=== PATIENT | female | born 1955 | race Caucasian/White ===

== ENCOUNTER → 2018-08-01 17:35 | Outpatient (CLI) | payer OTHER, MEDICAID, SELFPAY ==
--- NOTE | 2018-08-01 17:39 | DI.RAD.S_ITS ---
PROCEDURE: XR FINGER LT MIN 2V INDICATIONS: 5 th digit pain TECHNIQUE: AP hand, 2 views of the left fifth finger(s) acquired. COMPARISON: None. FINDINGS: Bones: Tiny bony fragment at the DIP joint may potentially represent a small avulsion fragment. No other fractures or dislocations. Soft tissues: No suspicious soft tissue calcifications. IMPRESSION: Question tiny avulsion off the distal phalanx of the small finger at the the DIP joint. Dictated by: Jaun Cat M.D. on 08/02/2018 at 9:19 Approved by: Jaun Cat M.D. on 08/02/2018 at 9:21
--- NOTE | 2018-08-01 17:39 | DI.RAD.S_ITS ---
PROCEDURE: XR CHEST 2V INDICATIONS: chest pain, shortness of breath TECHNIQUE: 2 views of the chest were acquired. COMPARISON: [facility], CT, THORAX WITH CONTRAST, 06/10/2015, 13:56. [facility], CR, CHEST 2 VIEW, 06/30/2015, 18:23. FINDINGS: Surgical changes and devices: None. Lungs and pleura: There is emphysematous change. There is chronic biapical pleural parenchymal thickening and biapical volume loss with cephalad retraction of the pulmonary john. Prominence of the vascular john and a left superior hilar bulbous appearance appears stable compared to the previous chest CT. These findings may represent chronic granulomatous disease. No focal pulmonary infiltrates. No pleural fluid. Mediastinum: Mediastinal contours are normal. Heart size is normal. Bones and chest wall: No suspicious bony abnormalities. Soft tissues appear unremarkable. IMPRESSION: 1. COPD. 2. Biapical pleural-parenchymal scarring and cephalad retraction of the pulmonary john may be secondary to chronic granulomatous disease. 3. No acute pulmonary process. Comment: If this patient has significant smoking history, yearly screening chest CT may be helpful. Dictated by: Jaun Cat M.D. on 08/02/2018 at 9:14 Approved by: Jaun Cat M.D. on 08/02/2018 at 9:19
[2018-08-01 19:22] LABS: Hematocrit 43.6 % (36-46); Hemoglobin 14.7 g/dL (12.0-16.0); Mean Corpuscular HGB Conc 33.7 % (30-36); Mean Corpuscular Hemoglobin 31.3 PG (26-34); Platelet Count 246 X10^3/uL (150-400); White Blood Cell Count 6.6 X10^3/uL (4.5-11.0)
[2018-08-01 19:37] LABS: Alanine Aminotransferase 26 IU/L (9-52); Albumin 4.7 g/dL (3.5-5.0); Albumin Globulin Ratio 1.6 (1.0-2.8); Alkaline Phosphatase 68 U/L (38-126); Aspartate Aminotransferase 27 IU/L (14-36); Bilirubin Total 0.6 mg/dL (0.2-1.3); Blood Urea Nitrogen 18 mg/dL (7-17); Calcium 9.7 mg/dL (8.4-10.2); Carbon Dioxide 28 mmol/L (22-32); Chloride 103 mmol/L (98-107); Cholesterol 177 mg/dL (140-199); Estimated Glomerular Filt Rate > 60.0 mL/min (>60); Glucose 96 mg/dL (80-110); HDL Cholesterol 90 mg/dL (40-60); HEMOLYSIS < 15 (0-50); LDL Cholesterol Calculated 77 mg/dL (<100); Sodium 140 mmol/L (137-145); Total Protein 7.7 g/dL (6.3-8.2); Triglycerides 48 mg/dL (35-150)
[2018-08-01 19:57] LABS: TSH w/ Reflex to FT4 1.48 uIU/mL (0.47-4.68)
== END ==
PROVIDERS: PCP Nurse Practitioner Family; Visit Provider Nurse Practitioner Family
DX: R07.89 Other chest pain (principal); J44.9 Chronic obstructive pulmonary disease, unspecified; M65.30 Trigger finger, unspecified finger; Z00.00 Encounter for general adult medical examination without abnormal findings
CPT/HCPCS: 36415; 71046; 73140; 80053; 80061; 84443; 85027

== ENCOUNTER 2018-08-11 15:11 | Emergency (ER) | payer OTHER, MEDICAID, SELFPAY ==
[2018-08-11 15:14] VITALS: BP 134/80; PULSE 91; RESP 16; TEMP 36.2; O2SAT 98
--- NOTE | 2018-08-11 15:26 | DI.CT.S_ITS ---
PROCEDURE: CT HEAD/BRAIN WO CON INDICATIONS: fall TECHNIQUE: Noncontrast 4.5 mm thick angled axial sections acquired from the foramen magnum to the vertex, with coronal and sagittal reformats. For radiation dose reduction, the following was used: automated exposure control, adjustment of mA and/or kV according to patient size. COMPARISON: None. FINDINGS: Image quality: Excellent. CSF spaces: Basal cisterns are patent. No extra-axial fluid collections. Ventricles are normal in size and shape. Brain: No midline shift. No intracranial masses or hemorrhage. Barnett-white matter interface is normal. Skull and face: Calvarium and visualized facial bones are intact, without suspicious lesions. There is a prominent left occipital arachnoid granulation. Sinuses: Visualized sinuses and mastoids are clear. IMPRESSION: Negative head CT with no evidence of acute stroke, hemorrhage, or mass. No evidence of significant intracranial sequelae of acute trauma. Dictated by: Jaun Cat M.D. on 08/11/2018 at 15:53 Approved by: Jaun Cat M.D. on 08/11/2018 at 15:55
--- NOTE | 2018-08-11 15:27 | DI.CT.S_ITS ---
PROCEDURE: CT FACIAL BONES WO CON INDICATIONS: fall TECHNIQUE: Noncontrast 2.5 mm thick axial images acquired from the mandible through the frontal sinuses, with coronal and sagittal reformatting. For radiation dose reduction, the following was used: automated exposure control, adjustment of mA and/or kV according to patient size. COMPARISON: [facility], CT, CT HEAD/BRAIN WO CON, 08/11/2018, 15:29. [facility], CT, CT CERVICAL SPINE WO CON, 08/11/2018, 15:29. FINDINGS: Image quality: Excellent. Bones and teeth: Orbital real are intact. Sinus real show no fracture or deformity. Nasal bones and septum are intact. Visualized portions of the mandible demonstrate no fractures or subluxation. Zygomatic arches are intact. Pterygoid plates are intact. Visualized portions of the skull base and auditory canals are intact. Sinuses: Mucous retention cyst versus polyp is present in the right maxillary sinus. Mild ethmoid, left maxillary and left frontal sinus mucosal thickening is present. There is leftward nasal septal deviation. Mastoid air cells are aerated. Soft tissues: No edema, masses, or fluid collections. No enlarged lymph nodes. No soft tissue lacerations or debris. Vascular: Visualized vascular structures appear normal in the absence of contrast. Bony vascular foramina and canals are intact. IMPRESSION: 1. No visualized fractures. Dictated by: Brandy Martinez M.D. on 08/11/2018 at 15:06 Approved by: Brandy Martinez M.D. on 08/11/2018 at 15:08
--- NOTE | 2018-08-11 15:29 | DI.CT.S_ITS ---
PROCEDURE: CT CERVICAL SPINE WO CON INDICATIONS: fall TECHNIQUE: Noncontrast 3 mm thick sections acquired from the skull base to the T4 level. Sagittal and coronal reformats were then constructed. For radiation dose reduction, the following was used: automated exposure control, adjustment of mA and/or kV according to patient size. COMPARISON: None. FINDINGS: Image quality: Excellent. Bones: No fractures or dislocations. Visualized superior ribs are intact. No cervical spondylitic change. Soft tissues: Prevertebral soft tissues are normal in thickness. No paravertebral hematomas. No apical pneumothoraces. Severe biapical centrilobular emphysema. IMPRESSION: No evidence of acute cervical fracture or dislocation. Mild cervical spondylosis. Severe centrilobular emphysema. Dictated by: Jaun Cat M.D. on 08/11/2018 at 16:01 Approved by: Jaun Cat M.D. on 08/11/2018 at 16:03
--- NOTE | 2018-08-11 17:24 | ED.HEATRA ---
HPI - Head Injury <KEON Ahmadi - Last Filed: 08/11/18 22:45> General Chief complaint: Head Injury Stated complaint: fell and is having 'head problems' Time Seen by Provider: 08/11/18 17:04 Source: patient Mode of arrival: ambulatory Limitations: no limitations History of Present Illness HPI Narrative: 63-year-old female with history of asthma and is a nonsmoker here for complaint of having injury to her head with some right-sided neck pain along with left-sided knee pain after ground level fall yesterday. She states that she was caring her dog down a step when she lost her standing fell forward hitting her right side of her forehead. She also hit the anterior portion of her left knee when she fell. She denies any loss of consciousness. No nausea vomiting. She is ambulatory into the emergency room. She states that she has felt a little lightheaded today. She she is not on any blood thinners. She denies any other injuries or concerns at this timeframe. No loss of bladder or bowel control. Related Data Home Medications Medication Instructions Recorded Confirmed Vitamin D PO 08/01/18 08/01/18 Zinc PO 08/01/18 08/01/18 magnesium PO 08/01/18 08/01/18 Previous Rx's Medication Instructions Recorded albuterol sulfate HFA 90 2 puff INHALATION Q6H PRN #18 gram 08/01/18 mcg/actuation aerosol inhaler tiotropium bromide 18 mcg capsule 1 cap INHALATION DAILY #30 08/07/18 with inhalation device inhalation cyclobenzaprine 10 mg PO TID PRN #15 tab 08/11/18 Allergies Allergy/AdvReac Type Severity Reaction Status Date / Time Penicillins Allergy Severe Face Verified 08/01/18 15:17 swelling Sulfa (Sulfonamide Allergy Unknown Unverified 08/01/18 15:17 Antibiotics) [SULFA (SULFONAMIDE ANTIBIOTICS)] acetaminophen [From Vicodin] AdvReac Severe Psychosis Verified 08/01/18 15:17 hydrocodone [From Vicodin] AdvReac Severe Psychosis Verified 08/01/18 15:17 meperidine [From DEMEROL] AdvReac Mild Unverified 08/01/18 15:17 Review of Systems <KEON Ahmadi - Last Filed: 08/11/18 22:45> Constitutional Denies chills, Denies fever(s), Denies lethargy and Denies weakness Eyes Denies change in vision, Denies eye discharge, Denies irritation and Denies loss of vision ENT Ears, Nose, Mouth, and Throat: Denies change in voice, Denies neck pain and Denies sore throat Cardiovascular Denies chest pain, Denies irregular heart rhythm, Denies lightheadedness, Denies palpitations, Denies dyspnea, Denies dyspnea on exertion and Denies orthopnea Respiratory Denies cough, Denies dyspnea, Denies dyspnea on exertion and Denies wheezing Gastrointestinal Gastrointestinal: Denies abdominal pain, Denies change in bowel habits, Denies diarrhea, Denies nausea and Denies vomiting Genitourinary Denies hematuria, Denies flank pain, Denies urinary incontinence and Denies urinary urgency Musculoskeletal Denies neck pain Comments: Pain swelling to left knee. Tenderness to the lateral aspect of the neck. Integumentary/Breasts Denies pruritus, Denies erythema, Denies rash and Denies wounds Neurologic Denies loss of vision and Denies weakness Comments: Head injury Endocrine Denies palpitations Allergic/Immunologic Denies wheezing PFSH <KEON Ahmadi - Last Filed: 08/11/18 22:45> Social History Smoking Status: Current every day smoker Social History Smoking Status: Current every day smoker Exam <KEON Ahmadi - Last Filed: 08/11/18 22:45> Initial Vital Signs Initial Vital Signs: Vital Signs Temperature 97.2 F L 08/11/18 15:14 Pulse Rate 91 H 08/11/18 15:14 Respiratory Rate 16 08/11/18 15:14 Blood Pressure 134/80 08/11/18 15:14 Pulse Oximetry 98 08/11/18 15:14 Const General: cooperative and well developed Nutritional Appearance: well nourished Orientation: alert, awake, oriented x3 and not confused [facility] Mouth: oral mucosae normal and moist mucous membranes Eyes General: appearance normal, both eyes and all related structures Conjunctivae: conjunctivae normal Sclera: sclerae normal Pupils: PERRL EOM: EOM intact bilaterally Neck Neck: normal visual inspection, trachea midline, No lymphadenopathy, No midline deformity and No JVD Lymphatic: No lymphedema Other: No signs of trauma. No midline tenderness. Tenderness on palpation to the right paraspinals of the neck. Distal CMS is intact. Resp Effort & Inspection: normal respiratory effort, able to speak in complete sentences, no respiratory distress and no use of accessory muscles Auscultation: clear to auscultation bilaterally, no rales, no rhonchi and no wheezes Cardio Rate: regular rate Rhythm: regular rhythm Heart Sounds: no click, no gallops, no murmurs and no rubs Pulses: normal peripheral pulses Skin General: no rashes or lesions noted, No jaundice and No petechiae Neuro General: alert, oriented x3, gait normal and no focal motor deficits Speech: speech normal Extrem General: full ROM, no clubbing, cyanosis or edema, no pedal edema and no calf tenderness Other: Left knee with some slight swelling and bruising to the anterior portion of the knee. Negative anterior and posterior drawer sign. Distal CMS is intact. <Arben Fonseca DO - Last Filed: 08/12/18 01:42> Initial Vital Signs Initial Vital Signs: Vital Signs Temperature 97.2 F L 08/11/18 15:14 Pulse Rate 91 H 08/11/18 15:14 Respiratory Rate 16 08/11/18 15:14 Blood Pressure 134/80 08/11/18 15:14 Pulse Oximetry 98 08/11/18 15:14 Course <KEON Ahmadi - Last Filed: 08/11/18 22:45> Orders Ordered: ED Orders 08/11/18 17:57 XR knee LT 3V Stat Discontinued Medications Cyclobenzaprine HCl (Flexeril) 10 mg PO NOW ONE Stop: 08/11/18 18:20 Last Admin: 08/11/18 18:24 Dose: 10 mg Ibuprofen (Advil) 400 mg PO NOW ONE Stop: 08/11/18 18:20 Last Admin: 08/11/18 18:23 Dose: 400 mg Vital Signs - 8 hr 08/11/18 19:30 Pulse Rate 66 Respiratory Rate 20 Blood Pressure 130/79 Pulse Oximetry 98 <Arben Fonseca DO - Last Filed: 08/12/18 01:42> Orders Ordered: ED Orders 08/11/18 17:57 XR knee LT 3V Stat Discontinued Medications Cyclobenzaprine HCl (Flexeril) 10 mg PO NOW ONE Stop: 08/11/18 18:20 Last Admin: 08/11/18 18:24 Dose: 10 mg Ibuprofen (Advil) 400 mg PO NOW ONE Stop: 08/11/18 18:20 Last Admin: 08/11/18 18:23 Dose: 400 mg Vital Signs - 8 hr 08/11/18 19:30 Pulse Rate 66 Respiratory Rate 20 Blood Pressure 130/79 Pulse Oximetry 98 MDM - Head Injury <KEON Ahmadi - Last Filed: 08/11/18 22:45> Imaging Data Left knee : Radiologist's impression: [address] [place] [id number] XRay Report Signed Patient: Elvis Whitehead LMR#: [id number] : 7Acct:[id number] Age/Sex: 63 / FDate of Service: 08/11/18 Loc: ED Accession Number: [id number] Procedure: XR knee LT 3V Ordering Provider: Ramos Cherry PROCEDURE: XR KNEE LT 3V INDICATIONS: Ground level fall bruising and pain to left knee TECHNIQUE: 3 views of the knee were acquired. COMPARISON: None. FINDINGS: Bones: No fractures or dislocations. No suspicious bony lesions. Soft tissues: No joint effusion. No suspicious soft tissue calcifications. IMPRESSION: Intact left knee. Dictated by: Vandana Hoffmann M.D. on 08/11/2018 at 18:48 Approved by: Vandana Hoffmann M.D. on 08/11/2018 at 18:48 CT scan - head: Radiologist's impression: [address] [address] [address] Scan Report Signed Patient: Elvis Whitehead LMR#: [id number] : 7Acct:[id number] Age/Sex: 63 / FDate of Service: 08/11/18 Loc: ED Accession Number: [id number] Procedure: CT head/brain wo con Ordering Provider: Porsche Ramos D.O. PROCEDURE: CT HEAD/BRAIN WO CON INDICATIONS: fall TECHNIQUE: Noncontrast 4.5 mm thick angled axial sections acquired from the foramen magnum to the vertex, with coronal and sagittal reformats. For radiation dose reduction, the following was used: automated exposure control, adjustment of mA and/or kV according to patient size. COMPARISON: None. FINDINGS: Image quality: Excellent. CSF spaces: Basal cisterns are patent. No extra-axial fluid collections. Ventricles are normal in size and shape. Brain: No midline shift. No intracranial masses or hemorrhage. Barnett-white matter interface is normal. Skull and face: Calvarium and visualized facial bones are intact, without suspicious lesions. There is a prominent left occipital arachnoid granulation. Sinuses: Visualized sinuses and mastoids are clear. IMPRESSION: Negative head CT with no evidence of acute stroke, hemorrhage, or mass. No evidence of significant intracranial sequelae of acute trauma. Dictated by: Jaun Cat M.D. on 08/11/2018 at 15:53 Approved by: Jaun Cat M.D. on 08/11/2018 at 15:[address] : Radiologist's impression: [address] [address] [address] Scan Report Signed Patient: Elvis Whitehead LMR#: [id number] : 7Acct:[id number] Age/Sex: 63 / FDate of Service: 08/11/18 Loc: ED Accession Number: [id number] Procedure: CT facial bones wo con Ordering Provider: Porsche Ramos D.O. PROCEDURE: CT FACIAL BONES WO CON INDICATIONS: fall TECHNIQUE: Noncontrast 2.5 mm thick axial images acquired from the mandible through the frontal sinuses, with coronal and sagittal reformatting. For radiation dose reduction, the following was used: automated exposure control, adjustment of mA and/or kV according to patient size. COMPARISON: [facility], CT, CT HEAD/BRAIN WO CON, 08/11/2018, 15:29. [facility], CT, CT CERVICAL SPINE WO CON, 08/11/2018, 15:29. FINDINGS: Image quality: Excellent. Bones and teeth: Orbital real are intact. Sinus real show no fracture or deformity. Nasal bones and septum are intact. Visualized portions of the mandible demonstrate no fractures or subluxation. Zygomatic arches are intact. Pterygoid plates are intact. Visualized portions of the skull base and auditory canals are intact. Sinuses: Mucous retention cyst versus polyp is present in the right maxillary sinus. Mild ethmoid, left maxillary and left frontal sinus mucosal thickening is present. There is leftward nasal septal deviation. Mastoid air cells are aerated. Soft tissues: No edema, masses, or fluid collections. No enlarged lymph nodes. No soft tissue lacerations or debris. Vascular: Visualized vascular structures appear normal in the absence of contrast. Bony vascular foramina and canals are intact. IMPRESSION: 1. No visualized fractures. Dictated by: Brandy Martinez M.D. on 08/11/2018 at 15:06 Approved by: Brandy Martinez M.D. on 08/11/2018 at 15:[address] : Radiologist's impression: [place] [address] CT Scan Report Signed Patient: Elvis Whitehead LMR#: [id number] : 7Acct:[id number] Age/Sex: 63 / FDate of Service: 08/11/18 Loc: ED Accession Number: [id number] Procedure: CT cervical spine wo con Ordering Provider: Porsche Ramos D.O. PROCEDURE: CT CERVICAL SPINE WO CON INDICATIONS: fall TECHNIQUE: Noncontrast 3 mm thick sections acquired from the skull base to the T4 level. Sagittal and coronal reformats were then constructed. For radiation dose reduction, the following was used: automated exposure control, adjustment of mA and/or kV according to patient size. COMPARISON: None. FINDINGS: Image quality: Excellent. Bones: No fractures or dislocations. Visualized superior ribs are intact. No cervical spondylitic change. Soft tissues: Prevertebral soft tissues are normal in thickness. No paravertebral hematomas. No apical pneumothoraces. Severe biapical centrilobular emphysema. IMPRESSION: No evidence of acute cervical fracture or dislocation. Mild cervical spondylosis. Severe centrilobular emphysema. Dictated by: Jaun Cat M.D. on 08/11/2018 at 16:01 Approved by: Jaun Cat M.D. on 08/11/2018 at 16:03 [facility] Narrative Medical decision making narrative: CT of the head and neck was obtained was negative for any acute findings. Facial bones CT was obtained was also negative for any acute findings. X-ray the left knee was obtained and was negative for fracture or dislocation. Signs and symptoms presents as a minor head injury and facial contusion. Left knee injury presents as contusion to the left knee. [id number] Tylenol or Motrin as needed for any discomfort. Gentle range of motion to painful areas to help keep muscles loose. She is prescribed cyclobenzaprine help with any muscle tension. Follow up with primary care provider. Head injury instructions are provided with warning signs return to the emergency room. Discharge Plan Departure Patient Disposition: Home Clinical Impression: Minor closed head injury Contusion of face Qualifiers: Encounter type: initial encounter Qualified Code(s): S00.83XA - Contusion of other part of head, initial encounter Contusion of knee, left Qualifiers: Encounter type: initial encounter Qualified Code(s): S80.02XA - Contusion of left knee, initial encounter Discharge Date/Time: 08/11/18 19:30 Interventions: ED Discharge Assessment Last Done: 08/11/18 19:30 Instructions: DI for Closed Head Injury Activity Restrictions/Additional Instructions: Scanning of the head neck face and left knee were obtained today and were negative for any acute fractures or findings. Signs and symptoms presents as contusions to the face and to the left knee and minor head injury. Head injury instructions are provided with warning signs to return to the emergency room. Use [id number] Tylenol or Motrin as needed for any discomfort. A muscle relaxer called cyclobenzaprine as prescribed help with any muscle tension use as directed. No driving on the muscle relaxers a can make you drowsy. Gentle range of motion to painful areas to help keep muscles loose. Follow up with her primary care provider. Return emergency room for any worsening symptoms. Prescriptions: New cyclobenzaprine 10 mg tablet 10 mg PO TID PRN (Reason: muscle spasm) Qty: 15 RF: 0 No Action Vitamin D PO RF: 0 Zinc PO RF: 0 magnesium PO RF: 0 Ventolin HFA 90 mcg/actuation HFA aerosol inhaler 2 puff INHALATION Q6H PRN (Reason: shortness of breath) Qty: 18 RF: 3 Spiriva with HandiHaler 18 mcg capsule, w/inhalation device 1 cap INHALATION DAILY Qty: 30 RF: 2 Referrals: Kacy Matute ARNP [Primary Care Provider] - <Arben Fonseca DO - Last Filed: 08/12/18 01:42> Cosign ED Attending Karina Attestation: I was available for consultation during this patient's emergency department encounter
--- NOTE | 2018-08-11 17:28 | ED_ITS ---
HPI - Head Injury <KEON Ahmadi - Last Filed: 08/11/18 22:45> General Chief complaint: Head Injury Stated complaint: fell and is having 'head problems' Time Seen by Provider: 08/11/18 17:04 Source: patient Mode of arrival: ambulatory Limitations: no limitations History of Present Illness HPI Narrative: 63-year-old female with history of asthma and is a nonsmoker here for complaint of having injury to her head with some right-sided neck pain along with left-sided knee pain after ground level fall yesterday. She states that she was caring her dog down a step when she lost her standing fell forward hitting her right side of her forehead. She also hit the anterior portion of her left knee when she fell. She denies any loss of consciousness. No nausea vomiting. She is ambulatory into the emergency room. She states that she has felt a little lightheaded today. She she is not on any blood thinners. She denies any other injuries or concerns at this timeframe. No loss of bladder or bowel control. Related Data Home Medications Medication Instructions Recorded Confirmed Vitamin D PO 08/01/18 08/01/18 Zinc PO 08/01/18 08/01/18 magnesium PO 08/01/18 08/01/18 Previous Rx's Medication Instructions Recorded albuterol sulfate HFA 90 2 puff INHALATION Q6H PRN #18 gram 08/01/18 mcg/actuation aerosol inhaler tiotropium bromide 18 mcg capsule 1 cap INHALATION DAILY #30 08/07/18 with inhalation device inhalation cyclobenzaprine 10 mg PO TID PRN #15 tab 08/11/18 Allergies Allergy/AdvReac Type Severity Reaction Status Date / Time Penicillins Allergy Severe Face Verified 08/01/18 15:17 swelling Sulfa (Sulfonamide Allergy Unknown Unverified 08/01/18 15:17 Antibiotics) [SULFA (SULFONAMIDE ANTIBIOTICS)] acetaminophen [From Vicodin] AdvReac Severe Psychosis Verified 08/01/18 15:17 hydrocodone [From Vicodin] AdvReac Severe Psychosis Verified 08/01/18 15:17 meperidine [From DEMEROL] AdvReac Mild Unverified 08/01/18 15:17 Review of Systems <KEON Ahmadi - Last Filed: 08/11/18 22:45> Constitutional Denies chills, Denies fever(s), Denies lethargy and Denies weakness Eyes Denies change in vision, Denies eye discharge, Denies irritation and Denies loss of vision ENT Ears, Nose, Mouth, and Throat: Denies change in voice, Denies neck pain and Denies sore throat Cardiovascular Denies chest pain, Denies irregular heart rhythm, Denies lightheadedness, Denies palpitations, Denies dyspnea, Denies dyspnea on exertion and Denies orthopnea Respiratory Denies cough, Denies dyspnea, Denies dyspnea on exertion and Denies wheezing Gastrointestinal Gastrointestinal: Denies abdominal pain, Denies change in bowel habits, Denies diarrhea, Denies nausea and Denies vomiting Genitourinary Denies hematuria, Denies flank pain, Denies urinary incontinence and Denies urinary urgency Musculoskeletal Denies neck pain Comments: Pain swelling to left knee. Tenderness to the lateral aspect of the neck. Integumentary/Breasts Denies pruritus, Denies erythema, Denies rash and Denies wounds Neurologic Denies loss of vision and Denies weakness Comments: Head injury Endocrine Denies palpitations Allergic/Immunologic Denies wheezing PFSH <KEON Ahmadi - Last Filed: 08/11/18 22:45> Social History Smoking Status: Current every day smoker Social History Smoking Status: Current every day smoker Exam <KEON Ahmadi - Last Filed: 08/11/18 22:45> Initial Vital Signs Initial Vital Signs: Vital Signs Temperature 97.2 F L 08/11/18 15:14 Pulse Rate 91 H 08/11/18 15:14 Respiratory Rate 16 08/11/18 15:14 Blood Pressure 134/80 08/11/18 15:14 Pulse Oximetry 98 08/11/18 15:14 Const General: cooperative and well developed Nutritional Appearance: well nourished Orientation: alert, awake, oriented x3 and not confused [facility] Mouth: oral mucosae normal and moist mucous membranes Eyes General: appearance normal, both eyes and all related structures Conjunctivae: conjunctivae normal Sclera: sclerae normal Pupils: PERRL EOM: EOM intact bilaterally Neck Neck: normal visual inspection, trachea midline, No lymphadenopathy, No midline deformity and No JVD Lymphatic: No lymphedema Other: No signs of trauma. No midline tenderness. Tenderness on palpation to the right paraspinals of the neck. Distal CMS is intact. Resp Effort & Inspection: normal respiratory effort, able to speak in complete sentences, no respiratory distress and no use of accessory muscles Auscultation: clear to auscultation bilaterally, no rales, no rhonchi and no wheezes Cardio Rate: regular rate Rhythm: regular rhythm Heart Sounds: no click, no gallops, no murmurs and no rubs Pulses: normal peripheral pulses Skin General: no rashes or lesions noted, No jaundice and No petechiae Neuro General: alert, oriented x3, gait normal and no focal motor deficits Speech: speech normal Extrem General: full ROM, no clubbing, cyanosis or edema, no pedal edema and no calf tenderness Other: Left knee with some slight swelling and bruising to the anterior portion of the knee. Negative anterior and posterior drawer sign. Distal CMS is intact. <Arben Fonseca DO - Last Filed: 08/12/18 01:42> Initial Vital Signs Initial Vital Signs: Vital Signs Temperature 97.2 F L 08/11/18 15:14 Pulse Rate 91 H 08/11/18 15:14 Respiratory Rate 16 08/11/18 15:14 Blood Pressure 134/80 08/11/18 15:14 Pulse Oximetry 98 08/11/18 15:14 Course <KEON Ahmadi - Last Filed: 08/11/18 22:45> Orders Ordered: ED Orders 08/11/18 17:57 XR knee LT 3V Stat Discontinued Medications Cyclobenzaprine HCl (Flexeril) 10 mg PO NOW ONE Stop: 08/11/18 18:20 Last Admin: 08/11/18 18:24 Dose: 10 mg Ibuprofen (Advil) 400 mg PO NOW ONE Stop: 08/11/18 18:20 Last Admin: 08/11/18 18:23 Dose: 400 mg Vital Signs - 8 hr 08/11/18 19:30 Pulse Rate 66 Respiratory Rate 20 Blood Pressure 130/79 Pulse Oximetry 98 <Arben Fonseca DO - Last Filed: 08/12/18 01:42> Orders Ordered: ED Orders 08/11/18 17:57 XR knee LT 3V Stat Discontinued Medications Cyclobenzaprine HCl (Flexeril) 10 mg PO NOW ONE Stop: 08/11/18 18:20 Last Admin: 08/11/18 18:24 Dose: 10 mg Ibuprofen (Advil) 400 mg PO NOW ONE Stop: 08/11/18 18:20 Last Admin: 08/11/18 18:23 Dose: 400 mg Vital Signs - 8 hr 08/11/18 19:30 Pulse Rate 66 Respiratory Rate 20 Blood Pressure 130/79 Pulse Oximetry 98 MDM - Head Injury <KEON Ahmadi - Last Filed: 08/11/18 22:45> Imaging Data Left knee : Radiologist's impression: [address] [place] [id number] XRay Report Signed Patient: Elvis Whitehead LMR#: [id number] : 7Acct:[id number] Age/Sex: 63 / FDate of Service: 08/11/18 Loc: ED Accession Number: [id number] Procedure: XR knee LT 3V Ordering Provider: Ramos Cherry PROCEDURE: XR KNEE LT 3V INDICATIONS: Ground level fall bruising and pain to left knee TECHNIQUE: 3 views of the knee were acquired. COMPARISON: None. FINDINGS: Bones: No fractures or dislocations. No suspicious bony lesions. Soft tissues: No joint effusion. No suspicious soft tissue calcifications. IMPRESSION: Intact left knee. Dictated by: Vandana Hoffmann M.D. on 08/11/2018 at 18:48 Approved by: Vandana Hoffmann M.D. on 08/11/2018 at 18:48 CT scan - head: Radiologist's impression: [address] [address] [address] Scan Report Signed Patient: Elvis Whitehead LMR#: [id number] : 7Acct:[id number] Age/Sex: 63 / FDate of Service: 08/11/18 Loc: ED Accession Number: [id number] Procedure: CT head/brain wo con Ordering Provider: Porsche Ramos D.O. PROCEDURE: CT HEAD/BRAIN WO CON INDICATIONS: fall TECHNIQUE: Noncontrast 4.5 mm thick angled axial sections acquired from the foramen magnum to the vertex, with coronal and sagittal reformats. For radiation dose reduction, the following was used: automated exposure control, adjustment of mA and/or kV according to patient size. COMPARISON: None. FINDINGS: Image quality: Excellent. CSF spaces: Basal cisterns are patent. No extra-axial fluid collections. Ventricles are normal in size and shape. Brain: No midline shift. No intracranial masses or hemorrhage. Barnett-white matter interface is normal. Skull and face: Calvarium and visualized facial bones are intact, without suspicious lesions. There is a prominent left occipital arachnoid granulation. Sinuses: Visualized sinuses and mastoids are clear. IMPRESSION: Negative head CT with no evidence of acute stroke, hemorrhage, or mass. No evidence of significant intracranial sequelae of acute trauma. Dictated by: Jaun Cat M.D. on 08/11/2018 at 15:53 Approved by: Jaun Cat M.D. on 08/11/2018 at 15:[address] : Radiologist's impression: [address] [address] [address] Scan Report Signed Patient: Elvis Whitehead LMR#: [id number] : 7Acct:[id number] Age/Sex: 63 / FDate of Service: 08/11/18 Loc: ED Accession Number: [id number] Procedure: CT facial bones wo con Ordering Provider: Porsche Ramos D.O. PROCEDURE: CT FACIAL BONES WO CON INDICATIONS: fall TECHNIQUE: Noncontrast 2.5 mm thick axial images acquired from the mandible through the frontal sinuses, with coronal and sagittal reformatting. For radiation dose reduction, the following was used: automated exposure control, adjustment of mA and/or kV according to patient size. COMPARISON: [facility], CT, CT HEAD/BRAIN WO CON, 08/11/2018, 15:29. [facility], CT, CT CERVICAL SPINE WO CON, 08/11/2018, 15:29. FINDINGS: Image quality: Excellent. Bones and teeth: Orbital real are intact. Sinus real show no fracture or deformity. Nasal bones and septum are intact. Visualized portions of the mandible demonstrate no fractures or subluxation. Zygomatic arches are intact. Pterygoid plates are intact. Visualized portions of the skull base and auditory canals are intact. Sinuses: Mucous retention cyst versus polyp is present in the right maxillary sinus. Mild ethmoid, left maxillary and left frontal sinus mucosal thickening is present. There is leftward nasal septal deviation. Mastoid air cells are aerated. Soft tissues: No edema, masses, or fluid collections. No enlarged lymph nodes. No soft tissue lacerations or debris. Vascular: Visualized vascular structures appear normal in the absence of contrast. Bony vascular foramina and canals are intact. IMPRESSION: 1. No visualized fractures. Dictated by: Brandy Martinez M.D. on 08/11/2018 at 15:06 Approved by: Brandy Martinez M.D. on 08/11/2018 at 15:[address] : Radiologist's impression: [place] [address] CT Scan Report Signed Patient: Elvis Whitehead LMR#: [id number] : 7Acct:[id number] Age/Sex: 63 / FDate of Service: 08/11/18 Loc: ED Accession Number: [id number] Procedure: CT cervical spine wo con Ordering Provider: Porsche Ramos D.O. PROCEDURE: CT CERVICAL SPINE WO CON INDICATIONS: fall TECHNIQUE: Noncontrast 3 mm thick sections acquired from the skull base to the T4 level. Sagittal and coronal reformats were then constructed. For radiation dose reduction, the following was used: automated exposure control, adjustment of mA and/or kV according to patient size. COMPARISON: None. FINDINGS: Image quality: Excellent. Bones: No fractures or dislocations. Visualized superior ribs are intact. No cervical spondylitic change. Soft tissues: Prevertebral soft tissues are normal in thickness. No paravertebral hematomas. No apical pneumothoraces. Severe biapical centrilobular emphysema. IMPRESSION: No evidence of acute cervical fracture or dislocation. Mild cervical spondylosis. Severe centrilobular emphysema. Dictated by: Jaun Cat M.D. on 08/11/2018 at 16:01 Approved by: Jaun Cat M.D. on 08/11/2018 at 16:03 [facility] Narrative Medical decision making narrative: CT of the head and neck was obtained was negative for any acute findings. Facial bones CT was obtained was also negative for any acute findings. X-ray the left knee was obtained and was negative for fracture or dislocation. Signs and symptoms presents as a minor head injury and facial contusion. Left knee injury presents as contusion to the left knee. [id number] Tylenol or Motrin as needed for any discomfort. Gentle range of motion to painful areas to help keep muscles loose. She is prescribed cyclobenzaprine help with any muscle tension. Follow up with primary care provider. Head injury instructions are provided with warning signs return to the emergency room. Discharge Plan Departure Patient Disposition: Home Clinical Impression: Minor closed head injury Contusion of face Qualifiers: Encounter type: initial encounter Qualified Code(s): S00.83XA - Contusion of other part of head, initial encounter Contusion of knee, left Qualifiers: Encounter type: initial encounter Qualified Code(s): S80.02XA - Contusion of left knee, initial encounter Discharge Date/Time: 08/11/18 19:30 Interventions: ED Discharge Assessment Last Done: 08/11/18 19:30 Instructions: DI for Closed Head Injury Activity Restrictions/Additional Instructions: Scanning of the head neck face and left knee were obtained today and were negative for any acute fractures or findings. Signs and symptoms presents as contusions to the face and to the left knee and minor head injury. Head injury instructions are provided with warning signs to return to the emergency room. Use [id number] Tylenol or Motrin as needed for any discomfort. A muscle relaxer called cyclobenzaprine as prescribed help with any muscle tension use as directed. No driving on the muscle relaxers a can make you drowsy. Gentle range of motion to painful areas to help keep muscles loose. Follow up with her primary care provider. Return emergency room for any worsening symptoms. Prescriptions: New cyclobenzaprine 10 mg tablet 10 mg PO TID PRN (Reason: muscle spasm) Qty: 15 RF: 0 No Action Vitamin D PO RF: 0 Zinc PO RF: 0 magnesium PO RF: 0 Ventolin HFA 90 mcg/actuation HFA aerosol inhaler 2 puff INHALATION Q6H PRN (Reason: shortness of breath) Qty: 18 RF: 3 Spiriva with HandiHaler 18 mcg capsule, w/inhalation device 1 cap INHALATION DAILY Qty: 30 RF: 2 Referrals: Kacy Matute ARNP [Primary Care Provider] - <Arben Fonseca DO - Last Filed: 08/12/18 01:42> Cosign ED Attending Karina Attestation: I was available for consultation during this patient's emergency department encounter
--- NOTE | 2018-08-11 17:57 | DI.RAD.S_ITS ---
PROCEDURE: XR KNEE LT 3V INDICATIONS: Ground level fall bruising and pain to left knee TECHNIQUE: 3 views of the knee were acquired. COMPARISON: None. FINDINGS: Bones: No fractures or dislocations. No suspicious bony lesions. Soft tissues: No joint effusion. No suspicious soft tissue calcifications. IMPRESSION: Intact left knee. Dictated by: Vandana Hoffmann M.D. on 08/11/2018 at 18:48 Approved by: Vandana Hoffmann M.D. on 08/11/2018 at 18:48
[2018-08-11] MEDS: IBUPROFEN 400 MG TABLET PO (18:23)
[2018-08-11] MEDS: CYCLOBENZAPRINE 10 MG TABLET PO (18:24)
[2018-08-11 19:30] VITALS: BP 130/79; PULSE 66; RESP 20; O2SAT 98
== END 2018-08-11 19:30 | disposition home or self-care (01) ==
PROVIDERS: Emergency Provider Nurse Practitioner Family; PCP Nurse Practitioner Family
DX: S00.83XA Contusion of other part of head, initial encounter (principal); S80.02XA Contusion of left knee, initial encounter; W18.30XA Fall on same level, unspecified, initial encounter
CPT/HCPCS: 70450; 70486; 72125; 73562; 99283; 99284

== ENCOUNTER → 2020-02-28 12:50 | Outpatient (CLI) | payer OTHER, MEDICAID, SELFPAY ==
--- NOTE | 2020-02-28 12:51 | DI.CT.S_ITS ---
PROCEDURE: CT CHEST WO CON INDICATIONS: abnormal chest xray, heavy smoker TECHNIQUE: Noncontrast 5 mm thick sections acquired from the pulmonary apices to the posterior costophrenic angles. 1 mm lung window, 5 mm thick coronal and sagittal and 7 mm axial MIP reformats were then acquired. For radiation dose reduction, the following was used: automated exposure control, adjustment of mA and/or kV according to patient size. COMPARISON: [facility], CT, THORAX WITH CONTRAST, 06/10/2015, 13:56. FINDINGS: Image quality: Excellent. Lungs and pleura: There is severe centrilobular emphysema. Large pulmonary bulla are also present within the bilateral mid lungs. Diffuse scarring is also present within the lungs. Focal pulmonary radiopacities or a pulmonary mass is noted at the lateral right lung base which measures approximately 1.6 x 1.4 cm in the axial plane (series 3/image 290). Scattered tree-in-bud pulmonary radiopacities surround this pulmonary nodule. Multiple subcentimeter pulmonary nodules are present within the anterior aspect of the left upper lobe. Bronchiectasis is noted in this region (series 3/images 1 14-128). Irregularly marginated pulmonary nodules are also present at the posterior left lung base which measure approximately 1.3 x 1.4 cm in the axial plane (series 3/image 172). All of these findings are new when compared with the prior CT from June 10, 2015. No pleural effusion or pneumothorax. Mediastinum: Heart size is normal. No pericardial effusion. No mediastinal adenopathy by size criteria. Thoracic aorta and central pulmonary arteries are normal in size. Scattered atheromatous calcifications are present within the aortic arch. Esophagus is normal in caliber. No hiatal hernia. Bones and chest wall: No suspicious bony lesions. No vertebral body compression fractures. No axillary or supraclavicular adenopathy by size criteria. Thyroid gland is unremarkable . Abdomen: Visualized upper abdominal solid organs and bowel loops appear normal in the absence of contrast. IMPRESSION: 1. Focal pulmonary radiopacities at the lateral right lung base with associated tree-in-bud pulmonary radiopacities suggesting infection . However, neoplasm cannot be excluded and short-term follow-up (1-3 months) is recommended. 2. Nodular pulmonary radiopacities within the left upper lung and pulmonary radiopacities at the left lung base. These are new when compared with the prior CT dated June 10, 2015. Neoplasm cannot be excluded and short interval follow-up is recommended to ensure stability and exclude interval growth. Please note, PET-CT could also be used to evaluate these pulmonary radiopacities if clinically appropriate. Dictated by: Anabel Hernandez M.D. on 02/28/2020 at 14:56 Approved by: Anabel Hernandez M.D. on 02/28/2020 at 15:03
[2020-02-28 13:48] LABS: Hematocrit 39.7 % (36-46); Mean Corpuscular HGB Conc 32.8 % (30-36); Mean Corpuscular Volume 94.4 fL (80-100); Platelet Count 290 X10^3/uL (150-400); Red Cell Distribution Width 13.7 % (11.6-14.8); White Blood Cell Count 7.1 X10^3/uL (4.5-11.0)
[2020-02-28 14:07] LABS: Alanine Aminotransferase 14 IU/L (<35); Albumin 4.2 g/dL (3.5-5.0); Albumin Globulin Ratio 1.3 (1.0-2.8); Alkaline Phosphatase 65 U/L (38-126); Aspartate Aminotransferase 26 IU/L (14-36); BUN Creatinine Ratio 33.3 (6-22); Bilirubin Total 0.5 mg/dL (0.2-1.3); Blood Urea Nitrogen 18 mg/dL (7-17); Carbon Dioxide 31 mmol/L (22-32); Chloride 103 mmol/L (98-107); Estimated Glomerular Filt Rate > 60.0 mL/min (>60); Globulin 3.2 g/dL (1.7-4.1); Glucose 92 mg/dL (80-110); HEMOLYSIS < 15 (0-50); Potassium 4.2 mmol/L (3.4-5.1); Sodium 138 mmol/L (137-145); Total Protein 7.4 g/dL (6.3-8.2)
== END ==
PROVIDERS: PCP Nurse Practitioner Family; Referring Provider Nurse Practitioner Family; Visit Provider Nurse Practitioner Family
DX: R93.89 Abnormal findings on diagnostic imaging of other specified body structures (principal); R91.8 Other nonspecific abnormal finding of lung field; J43.2 Centrilobular emphysema; R05 Cough; F17.201 Nicotine dependence, unspecified, in remission
CPT/HCPCS: 36415; 71250; 80053; 85027

== ENCOUNTER → 2020-04-22 16:08 | Outpatient (CLI) | payer OTHER, MEDICAID, SELFPAY ==
--- NOTE | 2020-04-22 16:11 | DI.RAD.S_ITS ---
PROCEDURE: XR FOOT RT MIN 3V INDICATIONS: right foot injury TECHNIQUE: 3 views of the foot were acquired. COMPARISON: None. FINDINGS: Bones: No fractures or dislocations. No suspicious bony lesions. Soft tissues: No tibiotalar joint effusion. Achilles tendon appears normal. IMPRESSION: No trauma found. Is hidden fracture is clinically suspected follow-up by CT or MR scanning may be warranted. Dictated by: Kimani Aaron M.D. on 04/22/2020 at 16:30 Approved by: Kimani Aaron M.D. on 04/22/2020 at 16:31
== END ==
PROVIDERS: PCP Nurse Practitioner Family; Referring Provider Registered Nurse; Visit Provider Registered Nurse
DX: S99.921A Unspecified injury of right foot, initial encounter (principal); X58.XXXA Exposure to other specified factors, initial encounter
CPT/HCPCS: 73630

== ENCOUNTER → 2020-05-14 18:48 | Outpatient (CLI) | payer OTHER, MEDICAID, SELFPAY ==
--- NOTE | 2020-05-14 18:52 | DI.MRI.S_ITS ---
PROCEDURE: MR FOOT RT WO CON INDICATIONS: right foot injury TECHNIQUE: Noncontrast sagittal T1 spin echo and T2 fast spin echo with fat saturation, long-axis T1 spin echo and T2 fast spin echo with fat saturation, short-axis T1 spin echo and T2 fast spin echo with fat saturation through the forefoot. COMPARISON: [facility], CR, XR FOOT RT MIN 3V, 04/22/2020, 16:11. FINDINGS: Image quality: Excellent. Bones and joints: There is a partially visualized, incompletely characterized fracture of the calcaneus. Marrow edema is noted in the visualized calcaneus adjacent to the fracture line. No metatarsal stress fractures. The sesamoid bones appear in expected positions, without internal edema. No metatarsophalangeal joint degeneration. No intraosseous lesions. 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 Small partially visualized tibiotalar joint effusion. Soft tissues: The visualized plantar foot muscles demonstrate normal signal and bulk. Visualized flexor and extensor tendons appear intact, without tenosynovitis. The distal insertions of the peroneus brevis and longus tendons appear intact. The principal Lisfranc ligament appears intact. No soft tissue ganglion cysts or bursal fluid collections. Sagittal images demonstrate no evidence for plantar plate tears. IMPRESSION: Partially visualized, incompletely characterized calcaneal fracture. Recommend CT scan of the ankle/hindfoot for definitive characterization of the injury. Dictated by: Albertina Quiñones MD, PhD on 05/15/2020 at 11:58 Approved by: Albertina Quiñones MD, PhD on 05/15/2020 at 14:09
== END ==
PROVIDERS: PCP Nurse Practitioner Family; Referring Provider Registered Nurse; Visit Provider Registered Nurse
DX: S92.001A Unspecified fracture of right calcaneus, initial encounter for closed fracture (principal); X58.XXXA Exposure to other specified factors, initial encounter
CPT/HCPCS: 73718

== ENCOUNTER → 2020-08-12 13:00 | Outpatient (CLI) | payer OTHER, MEDICAID, SELFPAY ==
[2020-08-13 10:11] LABS: Interpretation Negative (Negative)
== END ==
PROVIDERS: PCP Nurse Practitioner Family; Referring Provider Nurse Practitioner Family; Visit Provider Nurse Practitioner Family
DX: Z00.00 Encounter for general adult medical examination without abnormal findings (principal); J44.9 Chronic obstructive pulmonary disease, unspecified; K21.9 Gastro-esophageal reflux disease without esophagitis; R49.9 Unspecified voice and resonance disorder; R09.3 Abnormal sputum; Z78.9 Other specified health status
CPT/HCPCS: 83013; 99213

== ENCOUNTER → 2022-11-10 14:14 | Outpatient (CLI) | payer MEDICARE, OTHER, SELFPAY ==
--- NOTE | 2022-11-10 14:16 | DI.CT.S_ITS ---
PROCEDURE: CT ABDOMEN PELVIS W CON INDICATIONS: Unintentional weight loss TECHNIQUE: After the administration of oral and intravenous contrast, axial sections were acquired from the lung bases to the pubic symphysis. Coronal and sagittal reformats were performed. For radiation dose reduction, the following was used: automated exposure control, adjustment of mA and/or kV according to patient size. COMPARISON:[facility], CT, CT CHEST WO CON, 11/10/2022, 16:10. FINDINGS: Image quality: Good Lower chest: Separately dictated Solid organs: Hypervascular liver lesion in segment 7 measuring 1.2 cm. Gallbladder is unremarkable. Biliary tree and pancreatic duct are prominent, without definite pathologic dilation. No splenomegaly. No adrenal nodules. No hydronephrosis. Bilateral extrarenal pelvis. Vessels and lymph nodes: There is suspected mixing artifact in the portal venous system. No definite occlusive thrombus. No abdominal aortic aneurysm. No pathologic adenopathy by size criteria. Bowel and peritoneum: No evidence of small bowel obstruction. There is above average fecal loading. No pathologic ascites or drainable abscess. Body wall: Unremarkable Pelvis: Prominent adnexal vessels, sometimes seen with pelvic congestion syndrome. The bladder appears unremarkable, under distended. Bones: No acute or suspicious osseous finding. Sclerotic lesions may represent bone islands. There are degenerative changes. IMPRESSION: No definite disseminated malignancy in the abdomen/pelvis. There is a hypervascular lesion in segment 7 the liver that may represent a flash filling hemangioma. Given the provided clinical history and chest CT findings, consider further evaluation with liver MRI to confirm benign nature. Dictated by: Reji Gonzáles M.D. on 11/11/2022 at 9:04 Approved by: Reji Gonzáles M.D. on 11/11/2022 at 9:08
--- NOTE | 2022-11-10 14:16 | DI.CT.S_ITS ---
PROCEDURE: CT CHEST WO CON INDICATIONS: f/u on abnormal Chest CT from 2019 TECHNIQUE: Noncontrast 5 mm thick sections acquired from the pulmonary apices to the posterior costophrenic angles. 1 mm lung window, 5 mm thick coronal and sagittal and 7 mm axial MIP reformats were then acquired. For radiation dose reduction, the following was used: automated exposure control, adjustment of mA and/or kV according to patient size. COMPARISON: [facility], CT, CT CHEST WO CON, 02/28/2020, 12:57. FINDINGS: Image quality: Excellent. Lungs and pleura: Substantial paraseptal emphysema. Resolved right lower airspace opacity. Decreased tree-in-bud nodules. Resolved left lower lobe nodularity. Extensive fibrosis. Head there is hyperattenuating material within the right middle lobe bronchus (series 2, image 31), resulting in complete atelectasis of the right middle lobe. The bronchiectasis and tree-in-bud nodules are seen within the left lower lobe. Diffuse bronchiectasis also present, with bronchial thickening. Mediastinum: Heart size is normal. No pericardial effusion. No mediastinal adenopathy by size criteria. Thoracic aorta and central pulmonary arteries are normal in size. Esophagus is normal in caliber. No hiatal hernia. Bones and chest wall: No suspicious bony lesions. No vertebral body compression fractures. No axillary or supraclavicular adenopathy by size criteria. Thyroid gland is unremarkable . Abdomen: Visualized upper abdominal solid organs and bowel loops appear normal in the absence of contrast. IMPRESSION: Resolved right lower lobe and left lower lobe nodular opacities. Complete filling of the right middle lobar bronchus with hyperattenuating material, resulting in complete atelectasis of the right middle lobe. Findings could represent malignancy versus hyperattenuating secretions. Bronchoscopy should be considered. Chronic airways disease, with bronchiectasis, bronchial wall thickening in tree-in-bud nodules. Dictated by: Ramos Andino M.D. on 11/11/2022 at 8:28 Approved by: Ramos Andino M.D. on 11/11/2022 at 8:42
[2022-11-10 15:08] LABS: Alanine Aminotransferase 16 IU/L (<35); Albumin 4.3 g/dL (3.5-5.0); Albumin Globulin Ratio 1.4 (1.0-2.8); Alkaline Phosphatase 72 U/L (38-126); Aspartate Aminotransferase 26 IU/L (14-36); BUN Creatinine Ratio 26.9 (6-22); Bilirubin Total 0.6 mg/dL (0.2-1.3); Blood Urea Nitrogen 14 mg/dL (7-17); Calcium 8.9 mg/dL (8.4-10.2); Carbon Dioxide 31 mmol/L (22-32); Chloride 101 mmol/L (98-107); Estimated Glomerular Filt Rate > 60 mL/min (>60); Globulin 3.1 g/dL (1.7-4.1); Glucose 102 mg/dL (80-110); HEMOLYSIS < 15 (0-50); Potassium 4.3 mmol/L (3.4-5.1); Sodium 137 mmol/L (137-145); Total Protein 7.4 g/dL (6.3-8.2)
[2022-11-10 15:21] LABS: Hematocrit 40.5 % (36-46); Hemoglobin 13.5 g/dL (12.0-16.0); Mean Corpuscular HGB Conc 33.4 % (30-36); Mean Corpuscular Hemoglobin 30.7 PG (26-34); Platelet Count 242 X10^3/uL (150-400); Red Blood Cell Count 4.41 X10^6/uL (4.0-5.2); Red Cell Distribution Width 14.1 % (11.6-14.8); White Blood Cell Count 8.1 X10^3/uL (4.5-11.0)
[2022-11-10 15:36] LABS: Add Manual Diff / Slide Review YES; TSH w/ Reflex to FT4 0.89 uIU/mL (0.47-4.68)
[2022-11-10 16:26] LABS: Neutrophils Absolute Manual 2997 /uL (3000-5900); Total Cells Counted 100
[2022-11-10 16:27] LABS: RBC Morphology Normal Morphology
== END ==
PROVIDERS: PCP Family Medicine; Referring Provider Surgery; Visit Provider Surgery
DX: R91.1 Solitary pulmonary nodule (principal); J44.9 Chronic obstructive pulmonary disease, unspecified; K76.9 Liver disease, unspecified; R63.4 Abnormal weight loss; R13.10 Dysphagia, unspecified
CPT/HCPCS: 36415; 71250; 74177; 80053; 84443; 85007; 85025; Q9967

== ENCOUNTER 2022-12-07 10:11 | Day surgery (SDC) | payer MEDICARE, OTHER, SELFPAY ==
--- NOTE | 2022-12-07 | PATH_ITS ---
[facility] Accession Number: [id number] No. of containers..01 Tissue . 01 Material submitted: . hepatic flexure - HEPATIC FLEXURE POLYP . 01 Diagnosis: Hepatic Flexure, Polyp: Tubular adenoma. MRV 12/13/2022 1616 Local . 01 Electronically signed: . Jelena Hedrick MD, Pathologist NPI- [id number] . 01 Gross description: . HEPATIC FLEXURE POLYP: Received in formalin are 2 fragment(s) of tavares, soft tissue measuring 0.2 x 0.2 x 0.2 cm to 0.3 x 0.2 x 0.2 cm submitted entirely in 1 cassette(s) /YNES 12/09/2022 2223 Local . 01 Pathologist provided ICD-10: D12.3 . 01 CPT . 595824 Performed at: 01 [facility] [address] [place] [address] [address], [place], [place] [id number] MD Josiah Winslow MD Phone: [phone]
[2022-12-07 10:24] VITALS: BP 156/87; PULSE 66; RESP 16; TEMP 36.2; O2SAT 96; BMI 18.0
--- NOTE | 2022-12-07 10:31 | P.HP_ITS ---
History of Present Illness History of Present Illness Date Patient Seen: 12/07/22 Time Patient Seen: 10:31 Chief complaint: EGD & Colonoscopy w/poss bx's Narrative: Chronic abdominal pain and constipation. Previous scope in the s for irritable bowel no scopes since. 35lbs weight loss that she has not been able to regain in the past year. Nausea but no emesis. 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 ) second hand exposure: No alcohol intake: never substance use type: does not use Meds Home Medications and Allergies Home Medications Medication Instructions Recorded Confirmed Type Vitamin D PO 08/01/18 11/16/22 History Zinc PO 08/01/18 11/16/22 History olbas PO 01/18/20 11/16/22 History Vitamin C PO DAILY 07/28/21 11/16/22 History collagen PO DAILY 07/28/21 11/16/22 History probiotic PO 07/28/21 11/16/22 History quercetin PO 07/28/21 11/16/22 History albuterol sulfate 90 mcg/actuation 2 puff inhalation Q6H PRN 10/12/22 11/16/22 Rx aerosol inhaler (Ventolin HFA) shortness of breath #18 grams diphenhydramine HCl 25 mg capsule 25 mg PO ONCE PRN 10/12/22 11/16/22 History (Benadryl) fluticasone propionate 115 2 puff inhalation BID #12 grams 10/12/22 11/16/22 Rx mcg-salmeterol 21 mcg/actuation HFA inhaler (Advair HFA) fluticasone propionate 50 2 spray intranasal DAILY #9.9 mL 10/12/22 11/16/22 Rx mcg/actuation nasal spray,suspension (Flonase Allergy Relief) sodium,potassium,mag sulfates 17.5 See Rx Instructions PO .COMPLEX 10/21/22 11/16/22 Rx gram-3.13 gram-1.6 gram oral soln #354 mL (Suprep Bowel Prep Kit) Allergies Allergy/AdvReac Type Severity Reaction Status Date / Time Penicillins Allergy Severe Face Verified 11/16/22 13:03 swelling Sulfa (Sulfonamide Allergy Unknown Verified 11/16/22 13:03 Antibiotics) [SULFA (SULFONAMIDE ANTIBIOTICS)] acetaminophen [From Vicodin] AdvReac Severe Psychosis Verified 11/16/22 13:03 hydrocodone [From Vicodin] AdvReac Severe Psychosis Verified 11/16/22 13:03 meperidine [From DEMEROL] AdvReac Mild Verified 11/16/22 13:03 shellfish Allergy Intermediate Uncoded 11/16/22 13:03 Review of Systems Review of Systems ROS: Yes All systems reviewed with the patient and are negative except as otherwise documented Exam Const General: cooperative, frail appearing and ill appearing Nutritional Appearance: thin HENMT Head: normocephalic and atraumatic Eyes Sclera: sclerae normal Neck Neck: trachea midline Resp Effort & Inspection: normal respiratory effort and able to speak in complete sentences Cardio Rate: regular rate Rhythm: regular rhythm GI Palpation: soft Skin General: atrophy Trauma: no lacerations or abrasions Neuro General: patient alert, patient awake and patient oriented x3 Cognition: normal cognition Psych Mental Status: mental status grossly normal Judgment: judgment good Assessment & Plan Assessment & Plan narrative: Unexplained weight loss, epigastric discomfort, constipation Plan: EGD and Colonoscopy under MAC Time Spent With Patient Time with patient: less than 30 minutes
--- NOTE | 2022-12-07 10:50 | P.OP.COLON_ITS ---
Operative Date/Time/Diagnoses Date of procedure: 12/07/22 Time of procedure: 10:50 Pre-op diagnosis: Unexpected weight loss, dyspepsia, colon cancer screening Post-op diagnosis: same Procedure & Clinicians Study performed: EGD and colonoscopy with cold forceps polypectomy under MAC Same procedure as scheduled: Yes Indications: 35 lb weight loss, dyspepsia, colon cancer screening Surgeon: Elvira Unger Procedure Notes Procedure in detail: Preop diagnosis: Unexplained weight loss, dyspepsia, colon cancer screening Postop diagnosis: Same Operative procedure: EGD and colonoscopy with cold forceps polypectomy under MAC Surgeon: Guadalupe Unger MD Findings: EGD demonstrates a moderate to large hiatal hernia, no ulcerations or gastritis. A distinct lack of motility in the esophagus, stomach, duodenum. Colonoscopy demonstrated no diverticulosis, a single 3 mm polyp in the hepatic flexure taken with cold forceps. Procedure: Initially started with EGD. Patient was placed in a lateral position. Anesthetic was provided. Scope was inserted into the esophagus and advanced to the stomach. With insufflation identified the pylorus and intubate into the duodenum. Insufflation extraction of the scope including a retroflex had the above findings of moderate to large hiatal hernia, gastroparesis as well as no motility of the esophagus or duodenum. Scope was removed without incident and we proceeded with colonoscopy. Rectal exam is performed showing normal tone no masses. Colonoscope was inserted into the rectum and advanced to the ileocecal valve with minimal difficulty. Insufflation and extraction of the scope had the above findings of a small sessile polyp approximately 3 mm in size in the hepatic flexure. Retroflex was included in the rectum. Impression: Moderate to large hiatal hernia, absence of peristalsis of the esophagus, stomach, duodenum. In this clinical setting most common cause is viral. Duration of symptoms is however concerning. Colonoscopy showed a small hepatic flexure polyp that was taken for pathology. Plan: Follow up with Dr. Mckinney for possible further testing to document the motility of the upper GI tract. If indeed viral this should pass on its own. Full liquid diet with addition of nutritional supplements i.e. ensure recommended. Small frequent meals in a seated upright position. With regards to the colonoscopy she should be placed on a 5 year recall for poly ps. Findings: polyp(s) (Hepatic flexure sessile polyp 3 mm) and other findings (Lack of motility in the upper GI track that includes the esophagus, stomach, duodenu m. Moderate hiatal hernia) Specimen(s): other (Hepatic flexure sessile polyp) Complications: none Post-procedure Recommendations: Colonoscopy in 5 years Follow up: weeks Disposition: PACU
[2022-12-07 11:16] VITALS: BP 119/80; PULSE 66; RESP 20; TEMP 35.8; O2SAT 100
[2022-12-07 11:21] VITALS: BP 121/81; PULSE 63; RESP 22; O2SAT 99
[2022-12-07 11:26] VITALS: BP 137/88; PULSE 65; RESP 24; O2SAT 100
[2022-12-07 11:29] VITALS: BP 135/88; PULSE 60; RESP 17; O2SAT 99
[2022-12-07 11:34] VITALS: BP 144/99; PULSE 58; RESP 13; O2SAT 99
== END 2022-12-07 11:54 | disposition home or self-care (01) ==
PROVIDERS: PCP Family Medicine; Referring Provider Surgery; Visit Provider Surgery
PROC: 0DJ08ZZ Inspection of Upper Intestinal Tract, Via Natural or Artificial Opening Endoscopic (ICD-10-PCS; CPT 43235; principal; 2022-12-07 11:30)
PROC: 0DJD8ZZ Inspection of Lower Intestinal Tract, Via Natural or Artificial Opening Endoscopic (ICD-10-PCS; CPT 45378; 2022-12-07 11:30)
DX: D12.3 Benign neoplasm of transverse colon (principal); Z12.11 Encounter for screening for malignant neoplasm of colon; R10.9 Unspecified abdominal pain; R11.0 Nausea; R06.00 Dyspnea, unspecified; R63.4 Abnormal weight loss; J44.9 Chronic obstructive pulmonary disease, unspecified; Z87.891 Personal history of nicotine dependence
CPT/HCPCS: 44376; 45380; 43235; J2704

== ENCOUNTER → 2024-04-27 16:14 | Outpatient (CLI) | payer MEDICARE, OTHER, SELFPAY ==
[2024-04-27 17:34] LABS: Add Manual Diff / Slide Review NO; Basophils Absolute Auto 0 /uL (0-100); Basophils Percent Auto 0.6 % (0-2); Eosinophils Absolute Auto 100 /uL (0-450); Eosinophils Percent Auto 1.7 % (2-4); Hematocrit 41.4 % (36-46); Hemoglobin 13.6 g/dL (12.0-16.0); Lymphocytes Absolute Auto 2200 /uL (1100-4500); Lymphocytes Percent Auto 31.1 % (25-40); Mean Corpuscular HGB Conc 32.8 % (30-36); Mean Corpuscular Hemoglobin 30.6 PG (26-34); Mean Corpuscular Volume 93.4 fL (80-100); Monocytes Absolute Auto 600 /uL (0-900); Monocytes Percent Auto 8.7 % (3-14); Neutrophils Absolute Auto 4100 /uL (1500-7000); Neutrophils Percent Auto 57.9 % (50-75); Platelet Count 291 X10^3/uL (150-400); Red Blood Cell Count 4.44 X10^6/uL (4.0-5.2); Red Cell Distribution Width 14.5 % (11.6-14.8); White Blood Cell Count 7.1 X10^3/uL (4.5-11.0)
[2024-04-27 18:11] LABS: Alanine Aminotransferase 20 IU/L (<35); Albumin 4.4 g/dL (3.5-5.0); Albumin Globulin Ratio 1.5 (1.0-2.8); Alkaline Phosphatase 67 U/L (38-126); Aspartate Aminotransferase 39 IU/L (14-36); BUN Creatinine Ratio 36.5 (6-22); Bilirubin Total 0.7 mg/dL (0.2-1.3); Blood Urea Nitrogen 23 mg/dL (7-17); Calcium 9.1 mg/dL (8.4-10.2); Carbon Dioxide 30 mmol/L (22-32); Chloride 102 mmol/L (98-107); Estimated Glomerular Filt Rate > 60 mL/min (>60); Glucose 101 mg/dL (80-110); HEMOLYSIS < 15 (0-50); Potassium 4.2 mmol/L (3.4-5.1); Sodium 136 mmol/L (137-145); Total Protein 7.4 g/dL (6.3-8.2)
[2024-04-27 18:27] LABS: Appearance Urine UA CLEAR; Bilirubin Urine UA NEGATIVE (NEGATIVE); Color Urine UA YELLOW; Glucose Urine UA NEGATIVE (Negative); Ketones Urine UA NEGATIVE (NEGATIVE); Leukocyte Esterase Urine UA NEGATIVE (NEGATIVE); Nitrite Urine UA NEGATIVE (Negative); Occult Blood Urine UA TRACE-INTACT (Negative); Protein Urine UA NEGATIVE (Negative); Specific Gravity Urine UA <=1.005 (1.000-1.035); Urobilinogen Urine UA 0.2 E.U./dL (0.2)
[2024-04-27 18:46] LABS: pH Urine UA 6.5 (4.5-8.0)
[2024-04-27 18:54] LABS: Bacteria Urine Few (2-10); Culture Indicated Urine Cult Not Indicated; RBC Urine None Seen (0-5/HPF); Squamous Epithelial Cell Urine None Seen (0-5/HPF); Urine Volume 10mL (spun); WBC Urine 0-1/HPF (0-5/HPF)
[2024-04-30 16:09] LABS: Hep C Virus Ab w/Reflex Quant NEGATIVE s/c (NEGATIVE)
== END ==
PROVIDERS: PCP Family Medicine; Referring Provider Family Medicine; Visit Provider Family Medicine
DX: R10.9 Unspecified abdominal pain (principal); J44.9 Chronic obstructive pulmonary disease, unspecified
CPT/HCPCS: 36415; 80053; 81001; 85025; 86803

== ENCOUNTER → 2024-05-07 12:58 | Outpatient (CLI) | payer MEDICARE, OTHER, SELFPAY | LOC: RESP 12:59 | PROVIDERS: PCP Family Medicine; Referring Provider Family Medicine; Visit Provider Family Medicine | DX: J44.9 Chronic obstructive pulmonary disease, unspecified (principal); R94.2 Abnormal results of pulmonary function studies; R91.8 Other nonspecific abnormal finding of lung field | CPT/HCPCS: 94060 ==

== ENCOUNTER → 2024-05-07 13:02 | Outpatient (CLI) | payer MEDICARE, OTHER, SELFPAY ==
--- NOTE | 2024-05-07 15:38 | DI.MRI.S_ITS ---
PROCEDURE: MR ABDOMEN LIVER PROTOCOL INDICATIONS: f/u on Liver lesion on CT - eovist TECHNIQUE: Coronal HASTE, axial 2D FLASH in- and [id number]; axial breath-hold T2 FSE. Dynamic axial VIBE during the administration of contrast; post-contrast coronal VIBE or 2D FLASH with fat saturation from the hepatic dome to the iliac crests. Optional diffusion weighted imaging and ADC may be performed. COMPARISON: [facility], CT, CT ABDOMEN PELVIS W CON, 11/10/2022, 16:10. FINDINGS: Image quality: Diagnostic Lower chest: Lungs are not well assessed on MRI. Liver: Non cirrhotic liver contour. Hypervascular lesion is seen in segment 7, measuring 1.3 cm, without hyper of early contrast uptake. There is nodular discontinuous enhancement on early phase and high T2 signal. No other suspicious liver lesion. Gallbladder and biliary system: Unremarkable, nondilated Pancreas: No ductal dilation Spleen: Nonenlarged Adrenals: No discrete nodules Kidneys: No solid mass. No hydronephrosis. Vessels and lymph nodes: The main portal vein is patent. No abdominal aortic aneurysm. No pathologic lymph nodes by size criteria. Bowel and peritoneum: No small bowel obstruction. No pathologic ascites. Body wall: Unremarkable Bones: No suspicious osseous enhancement. IMPRESSION: The segment 7 liver lesion is compatible with a benign hemangioma. No definite metastasis or malignancy in the abdomen. Dictated by: Reji Gonzáles M.D. on 05/08/2024 at 10:07 Approved by: Reji Gonzáles M.D. on 05/08/2024 at 10:11
== END ==
PROVIDERS: PCP Family Medicine; Referring Provider Family Medicine; Visit Provider Family Medicine
DX: D18.03 Hemangioma of intra-abdominal structures (principal); J44.9 Chronic obstructive pulmonary disease, unspecified; R94.2 Abnormal results of pulmonary function studies; R91.8 Other nonspecific abnormal finding of lung field
CPT/HCPCS: 74183; 94060; A9579

== ENCOUNTER → 2024-07-10 14:05 | Outpatient (CLI) | payer MEDICARE, OTHER, SELFPAY ==
--- NOTE | 2024-07-10 14:08 | DI.CT.S_ITS ---
PROCEDURE: CT CHEST HIGH RESOLUTION INDICATIONS: H/o fibrotic lung disease, emphysema, consolidation plz eval TECHNIQUE: Noncontrast 1.0 and 5.0 mm thick contiguous axial sections from the pulmonary apex to the posterior costophrenic angles, with 7 mm thick coronal and sagittal MIP reformats. 1 mm thick dynamic expiratory images acquired through the upper, mid, and lower lungs. 1.0 mm thick axial sections acquired from the damien to the posterior costophrenic angles in the prone end-inspiration position. For radiation dose reduction, the following was used: automated exposure control, adjustment of mA and/or kV according to patient size. COMPARISON: [facility], CT, CT CHEST WO CON, 02/28/2020, 12:57. FINDINGS: Image quality: Diagnostic. Lower Neck: No enlarged lymph nodes. Thyroid: Heterogeneous thyroid. Axillae: No enlarged lymph nodes. Chest Wall: Unremarkable. Bones: Unremarkable. Lungs and Pleura: No pneumothorax or pleural effusions. Moderate centrilobular emphysema and substantial paraseptal emphysema, with large bulla present. There is bronchiectasis and architectural distortion , predominantly upper lobe period there is airways thickening with multiple dependent secretions and tree-in-bud nodules. debris within the trachea. No peripheral reticulation. Diffuse air trapping. Heart: Heart size is normal. No pericardial effusion. Moderate coronary calcifications. Thoracic Vessels: The aorta and pulmonary arteries demonstrate normal size. Mediastinum and Radha: No enlarged lymph nodes. Esophagus: No wall thickening. No hiatal hernia. Upper Abdomen: Visualized upper abdomen solid organs and bowel loops appear normal. IMPRESSION: Similar moderate centrilobular and substantial paraseptal emphysema, with associated upper lobe predominant scarring. Diffuse air trapping is present. 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 No features of interstitial lung disease outside of diffuse air trapping. Multiple tree-in-bud nodules in a dependent distribution. Additionally, there is debris within the trachea. Findings may indicate aspiration. Correlate with risk factors and consider speech pathology referral. Consider annual low-dose lung cancer screening if eligible (age 50-85 who have a 20 pack-year smoking history and currently smoke or have quit within the last 15 years). Dictated by: Ramos Andino M.D. on 07/12/2024 at 11:03 Approved by: Ramos Andino M.D. on 07/12/2024 at 11:08
== END ==
PROVIDERS: PCP Family Medicine; Referring Provider Internal Medicine Critical Care Medicine; Visit Provider Internal Medicine Critical Care Medicine
DX: J84.9 Interstitial pulmonary disease, unspecified (principal); J43.2 Centrilobular emphysema; I25.10 Atherosclerotic heart disease of native coronary artery without angina pectoris
CPT/HCPCS: 71250